=== PATIENT | female | born 2000 | race Hispanic/Latino ===

== ENCOUNTER 2022-05-30 15:05 | Emergency (ER) | payer OTHER ==
[~2022-05-30] VITALS: Ht 154.9 cm; Wt 49.0 kg
[2022-05-30] MEDS ORDERED: CEPHALEXIN500 MG PO (15:25)
== END 2022-05-30 15:44 | disposition home or self-care (01) ==
LOC: FSED 15:18
DX: S71.112A Laceration without foreign body, left thigh, initial encounter (principal); X78.8XXA Intentional self-harm by other sharp object, initial encounter; Y93.89 Activity, other specified; F20.9 Schizophrenia, unspecified
CPT/HCPCS: 99283